=== PATIENT | female | born 1965 | race Caucasian/White ===

== ENCOUNTER → 2018-09-20 17:59 | Emergency (ER) | payer OTHER ==
[2018-09-20 20:17] VITALS: BP 177/110
== END | disposition left against medical advice (07) ==
LOC: ED 17:59
DX: K82.9 Disease of gallbladder, unspecified (principal); Z53.21 Procedure and treatment not carried out due to patient leaving prior to being seen by health care provider

== ENCOUNTER 2019-03-05 12:39 | Emergency (ER) | payer OTHER ==
[2019-03-05 12:54] VITALS: BP 147/97
--- NOTE | 2019-03-05 13:02 | UC ---
Hand/Wrist HPI - HPI Summary HPI Summary: 53 yo female presents with RIGHT wrist pain. She tells me that last week on 03/01 she was doing a lot of cleaning and organizing her house. Later that day developed lateral wrist pain. Since that time has had pain in that area with movement of her wrist. She has not taken anything OTC for her discomfort. Denies specific injury, numbness, or tingling. She is right handed. She called Orthopedics and has an appointment there in 2 days, but came here today as she "could not take it anymore" - History Of Current Complaint Chief Complaint: UCUpperExtremity Stated Complaint: WRIST INJURY Time Seen by Provider: 03/05/19 12:55 Hx Obtained From: Patient Onset/Duration: Sudden Onset Severity Initially: Moderate Severity Currently: Moderate Pain Intensity: 7 Pain Scale Used: 0-10 Numeric - Allergies/Home Medications Allergies/Adverse Reactions: Allergies Allergy/AdvReac Type Severity Reaction Status Date / Time No Known Allergies Allergy Verified 03/05/19 12:54 PMH/Surg Hx/FS Hx/Imm Hx - Additional Past Medical History Additional PMH: None - Surgical History Surgical History: None - Family History Known Family History: Positive: None - Social History Lives: With Family Alcohol Use: Rare Substance Use Type: None Smoking Status (MU): Heavy Every Day Tobacco Smoker Review of Systems All Other Systems Reviewed And Are Negative: No Constitutional: Positive: Negative Skin: Positive: Negative Respiratory: Positive: Negative Cardiovascular: Positive: Negative Neurovascular: Positive: Negative Musculoskeletal: Positive: Other: - Right wrist pain Neurological: Positive: Negative Psychological: Positive: Negative Physical Exam - Summary Physical Exam Summary: GENERAL: NAD. WDWN. No pain distress. SKIN: No rashes, sores, lesions, or open wounds. CHEST: No accessory muscle use. Breathing comfortably and in no distress. CV: Pulses intact radial and ulnar. Cap refill <2seconds MSK: RIGHT WRIST: Mild TTP about ulnar aspect of wrist - likely extensor carpi ulnaris. Pain at site during radial deviation of wrist. 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 No edema or obvious bony deformities. No snuffbox tenderness. NEURO: Alert. Sensations intact hand and all fingers. PSYCH: Age appropriate behavior. Triage Information Reviewed: Yes Vital Signs: Initial Vital Signs Temp 98 F 03/05/19 12:50 Pulse 94 03/05/19 12:50 Resp 18 03/05/19 12:50 BP 147/97 03/05/19 12:50 Pulse Ox 100 03/05/19 12:50 Vital Signs Reviewed: Yes Hand/Wrist Course/Dx - Course Course Of Treatment: Suspect tendinitis of likely extensor carpi ulnaris. Pt placed in ALVIN wrap and cock-up splint for comfort. Will rx for naproxen. She is concerned about working as she does a lot of heavy lifting - will write her note for lifting no greater than 10 pounds. Keep appt with Ortho in 2 days for a recheck - Differential Dx/Diagnosis Provider Diagnosis: Wrist tendonitis Discharge ED - Sign-Out/Discharge Documenting (check all that apply): Patient Departure All imaging exams completed and their final reports reviewed: No Studies - Discharge Plan Condition: Stable Disposition: HOME Prescriptions: Naproxen [Naproxen 500 mg tab] 500 mg PO BID PRN #30 tablet PRN Reason: Pain - Mild Patient Education Materials: Tendinitis (ED) Forms: *Work Release Referrals: Troy Elder MD [Primary Care Provider] - Additional Instructions: If you develop a fever, shortness of breath, chest pain, new or worsening symptoms - please call your PCP or go to the ED immediately. Your blood pressure was high at todays visit. Please see your primary provider within 4 weeks for recheck and re-evaluation. 1) Rest, Ice, and elevate your wrist to decrease pain and swelling 2) Use the ALVIN wrap and wrist brace as needed for comfort 3) Take the naproxen as directed - do not take ibuprofen with this as these medications are related and may interact 4) Keep your appointment with Orthopedics for a recheck - Billing Disposition and Condition Condition: STABLE Disposition: Home - Attestation Statements Provider Attestation: This patient was not seen by me. I was available for consult. Chart reviewed. DAKOTAH
== END 2019-03-05 13:08 | disposition home or self-care (01) ==
LOC: UCEAST 12:39
DX: M77.9 Enthesopathy, unspecified (principal); F17.200 Nicotine dependence, unspecified, uncomplicated
CPT/HCPCS: 99213; G0463

== ENCOUNTER 2019-04-27 09:24 | Day surgery (SDC) | payer OTHER ==
--- NOTE | 2019-04-04 14:01 | HP ---
AMENDED REPORT NOW INCLUDES DESIGNATED COSIGNER PREOPERATIVE HISTORY AND PHYSICAL: DATE OF ADMISSION/SURGERY: 04/10/19 DATE OF OFFICE VISIT/ENCOUNTER: 03/29/19 ATTENDING SURGEON: Merlene Cooley MD * (DICTATED BY DANIKA CHING) PROCEDURE: Right wrist arthroscopy, triangular fibrocartilage complex repair, ulnar shortening osteotomy. HISTORY OF PRESENT ILLNESS: This is a 53-year-old female who has complaints of pain in her right wrist since the beginning of February 2019. She was doing lot of cleaning and reorganizing in her house with some lifting of heavy boxes. She started having pain on the dorsal and ulnar aspect of her right wrist. She wore a wrist brace for a period of time with minimal relief. She denies any associated numbness or tingling. She had an MRI arthrogram performed, which showed a TFCC tear and also an x-ray, which shows an ulnar positive variance of about 4 mm. She has consented to proceed with surgery for her wrist pain at this time. PAST MEDICAL HISTORY: History of gastritis. PAST SURGICAL HISTORY: Oral surgery. MEDICATIONS: Naproxen 500 mg 1 tab twice a day p.r.n. ALLERGIES: IBUPROFEN causes gastritis. FAMILY MEDICAL HISTORY: Diabetes, cardiac disease, COPD, bladder cancer. SOCIAL HISTORY: The patient is not currently working. 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. She is a current smoker half a pack per day for the past 30 years. She denies recreational drug use. She drinks alcohol on occasion. REVIEW OF SYSTEMS: Negative for general, cephalic, cardiovascular, respiratory , GI, , other musculoskeletal, integumentary, endocrine, neurologic, and hematologic symptoms. Infectious Disease: Negative for MRSA, hepatitis C, HIV. PHYSICAL EXAMINATION GENERAL: A well-developed, well-nourished 53-year-old female, in no acute distress. VITAL SIGNS: Height 5 feet 4 inches, weight 135 pounds. Blood pressure 122/81 , pulse rate 84. HEENT: Normocephalic, atraumatic. Pupils are equal, round, and reactive to light and accommodation. Extraocular movements are intact. Throat is clear. NECK: Supple. No palpable lymph nodes. PULMONARY: Lungs are clear to auscultation bilaterally. No wheezes, rales, or rhonchi. CARDIOVASCULAR: Regular rate and rhythm. S1, S2. No murmurs, rubs, or gallops. No edema. ABDOMEN: Positive bowel sounds. Soft, nontender. NEUROLOGICAL: Alert and oriented x3. Cranial nerves II through XII are intact. Sensation is intact to light touch. MUSCULOSKELETAL: On exam of her right wrist, there is mild swelling located at the dorsal ulnar aspect. There is no ecchymosis. She has good motion of her fingers, but wrist motion is limited in both flexion and extension and radial and ulnar deviation secondary to pain. She has tenderness at the distal radioulnar joint and at the radiocarpal joint. Skin is intact. Neurovascular function is intact. IMAGING STUDIES: X-rays: AP, lateral, and oblique of the right wrist show an ulnar positive variance of approximately 4.5 mm. MRI of the right wrist shows a tear in the TFCC. IMPRESSION: As above. PLAN: The patient is scheduled to undergo a right wrist arthroscopy, triangular fibrocartilage complex repair, and an ulnar shortening osteotomy with Dr. Cooley on 04/10/19. She will return to the office 10 days postop for followup and suture removal. A prescription for Balsam was e-scribed to the patient's pharmacy for postoperative pain management. DANIKA CHING [id number]/[facility] #: [id number] MTDSarwat
[2019-04-27] MEDS ORDERED: ceFAZolin 2 GM in NS PREMIX(*) 2 GM/100 ML BAG IVPB ONE (09:35)
[2019-04-27] MEDS ORDERED: Lidocaine 1% INJ* 10 MG/ML 30 ML SDV ONE (12:00)
[2019-04-27] MEDS ORDERED: Bupivacaine 0.5% SDV PF* 30ML VIAL ONE (12:00)
[2019-04-27] MEDS ORDERED: fentaNYL* 50 MCG/ML 2 ML VIAL (100 MCG VIAL) ONE ×2 (12:27→14:25)
[2019-04-27] MEDS ORDERED: Lidocaine 2% PF * 5 ML VIAL ONE (12:27)
[2019-04-27] MEDS ORDERED: Propofol* 10 MG/ML 20 ML BTL ONE (12:27)
[2019-04-27] MEDS ORDERED: Midazolam* 1 MG/ML 2 ML VIAL (2 MG) ONE (12:27)
[2019-04-27] MEDS ORDERED: Dexamethasone IV* 4 MG/ML 1 ML (4 MG) ONE (12:48)
[2019-04-27] MEDS ORDERED: fentaNYL* 50 MCG/ML 2 ML VIAL (100 MCG VIAL) IV PRN (13:12)
[2019-04-27] MEDS ORDERED: oxyCODONE TAB* 5 MG TAB PO PRN (13:12)
[2019-04-27] MEDS ORDERED: DiMENhydriNATE IV* 50 MG/ML VIAL IV PUSH PRN (13:12)
[2019-04-27] MEDS ORDERED: Acetaminophen TAB* 325 MG PO PRN (13:12)
[2019-04-27] MEDS ORDERED: Naloxone* 0.4 MG/ML 1 ML VIAL IV PRN (13:12)
[2019-04-27] MEDS ORDERED: HYDROcodone/ACETAMIN 5-325 MG* 1 TAB ONE (14:30)
[2019-04-27 15:26] VITALS: BP 117/68
--- NOTE | 2019-04-27 22:14 | OP ---
DATE OF OPERATION: 04/27/19 [facility] DATE OF : 61 SURGEON: Merlene Cooley MD SUPERVISOR KEYMODULE ASSEMBLY: DANIKA Meyers ANESTHESIA: General. 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 OPERATIVE PROCEDURE: Right wrist arthroscopy, TFCC debridement, and ulnar shortening osteotomy. INDICATIONS: Ni is a 53-year-old woman, who has pain on the ulnar aspect of her right wrist after repetitive injury at work. She has failed conservative treatment. She has a TFCC tear on her MRI and presents for an ulnar shortening osteotomy of 3 mm after arthroscopy and TFCC debridement. ESTIMATED BLOOD LOSS: Zero. TOURNIQUET TIME: Approximately an hour. DESCRIPTION OF PROCEDURE: The patient was brought to the operating room, was given a general anesthetic and placed in the supine position on the operating table with a tourniquet around her right upper arm. The skin of her right upper extremity was prepped and draped in the usual sterile fashion. The upper extremity was exsanguinated and the tourniquet elevated to 250 mmHg. The radiocarpal joint was filled with 10 cc of Marcaine 0.5% plain and then a stab incision was made on the dorsal aspect of the wrist distal to Kathi's tubercle. The arthroscope was placed in the midcarpal joint first and the articular surfaces of this joint were intact except for a small articular injury of the lunate. The scapholunate and lunotriquetral ligaments were intact. The arthroscope was then placed in the radiocarpal joint and again, we could see that the first row intracarpal ligaments were intact. The articular surface of the radius, scaphoid, and lunate were in excellent condition. There was a complex tear of the TFCC. A second portal was created in the 4-5 interval and then a 2.0 Gator shaver was placed and the TFCC tear and surrounding synovitis were debrided. The arthroscopy instruments were then removed and then a longitudinal incision was made along the subcutaneous border of the ulna. The interval between the flexor and extensor muscles was sharply incised and the muscle was subperiosteally dissected off the midshaft of the ulna. The plate from the [employer] ulnar shortening set was secured with one distal and three proximal screws. We then placed the guide to cut 3 mm and the guide was secured with a clamp. The bone was cut all the way across. The second cutting guide was also secured with a clamp and the 3 mm parallel cut was made. We then loosened the first screw and placed the guidewire in the distal fragment. The compression device was placed on the plate and we used it to reapproximate the two osteotomy sites, they were secured with a second clamp and then we drilled for a lag screw, which was 22 mm in length. The lag screw was placed while the bones were compressed and then the distal screw was resecured. The wrist joint was evaluated and the patient now had a -1 ulnar variance. The distal final two screws were placed and then the position of the hardware and osteotomy fragments were checked on the C-arm in the AP and lateral reviews and found to be satisfactory. The wound was irrigated. The flexor extensor interval was closed with 0 Vicryl suture. The subcutaneous tissue was closed with 3-0 Vicryl and the skin with skin aldo. The wound was dressed with Xeroform, 4x4, Webril, and a volar splint. The patient tolerated the procedure well and was brought to the recovery room in good condition. [id number]/[facility] #: [id number] JORGITO
== END 2019-04-27 15:20 | disposition home or self-care (01) ==
LOC: OREAST 09:24
PROVIDERS: ATTEND Orthopaedic Surgery
DX: S63.591A Other specified sprain of right wrist, initial encounter (principal); M24.131 Other articular cartilage disorders, right wrist; X50.3XXA Overexertion from repetitive movements, initial encounter; Y92.219 Unspecified school as the place of occurrence of the external cause; Y99.0 Civilian activity done for income or pay; F17.210 Nicotine dependence, cigarettes, uncomplicated
CPT/HCPCS: 76000; C1713; C1776; J0690; J1100; J2250; J2704; J3010; J3490